=== PATIENT | female | born 1985 | race Caucasian/White ===

== ENCOUNTER 2017-08-16 00:18 | Emergency (ER) | payer MEDICAID ==
[~2017-08-16] VITALS: Ht 162.6 cm; Wt 92.5 kg
[~2017-08-16 00:18] MED LIST: AMOX-291 PO; METF500T4 PO; OMEP-110 PO
[2017-08-16] MEDS ORDERED: SODIUM CHLORIDE 0.9% 1,000 ML IV ONE (00:52)
[2017-08-16] MEDS ORDERED: ACETAMINOPHEN 650 MG/20.3 ML UDC PO ONE (01:00)
[2017-08-16] MEDS ORDERED: SODIUM CHLORIDE FLUSH 10ML SYR IVF ONE (01:00)
[2017-08-16] MEDS ORDERED: SODIUM CHLORIDE 0.9% 1,000ML IVBOLUS ONE (01:00)
[2017-08-16] MEDS ORDERED: ONDANSETRON 2MG/ML, 2ML IVPush ONE (01:00)
[2017-08-16 01:12] LABS: HEMATOCRIT 34.7 % (34.6-47.8); HEMOGLOBIN 11.4 g/dL (11.7-16.4); WHITE BLOOD COUNT 7.3 x10^3/uL (3.4-10)
[2017-08-16 01:21] LABS: ASPARTATE AMINO TRANSFERASE 33 U/L (15-37); BLOOD UREA NITROGEN 9 mg/dL (7-18)
[2017-08-16] MEDS ORDERED: ACETAMINOPHEN 325 MG TABLET PO ONE (01:30)
[2017-08-16] MEDS ORDERED: ACETAMINOPHEN 325 MG TABLET ONE (01:33)
[2017-08-16] MEDS ORDERED: ONDANSETRON 2MG/ML, 2ML ONE (01:33)
[2017-08-16] MEDS ORDERED: INSULIN REGULAR 100 UNITS/ML, 3ML VIAL ONE (01:44)
[2017-08-16] MEDS ORDERED: CEFTRIAXONE PMX 1GM/50ML 50 ML ONE (01:59)
[2017-08-16] MEDS ORDERED: INSULIN REGULAR 100 UNITS/ML, 3ML VIAL SQ-INSULIN ONE (02:00)
[2017-08-16] MEDS ORDERED: CEFTRIAXONE PMX 1GM/50ML 50 ML IVPB ONE (02:00)
[2017-08-16 03:52] VITALS: BP 131/66
== END 2017-08-16 03:56 | disposition home or self-care (01) ==
LOC: ED 03:25
DX: N10 Acute pyelonephritis (principal); E11.65 Type 2 diabetes mellitus with hyperglycemia; Z79.4 Long term (current) use of insulin
CPT/HCPCS: 36415; 80053; 81001; 82010; 82803; 82962; 83605; 83690; 84703; 85025; 87040; 87077; 87086; 87186; 96365; 96366; 96372; 96375; 99285; J0696; J2405; J7030

== ENCOUNTER 2021-07-06 09:37 | Emergency (ER) | payer MEDICAID ==
[~2021-07-06] VITALS: Ht 160 cm; Wt 87.0 kg
[~2021-07-06 09:37] MED LIST changes: +METF500T17 PO; -METF500T4 PO
[2021-07-06 09:41] VITALS: BP_SYST 130
[2021-07-06] MEDS ORDERED: FLUORESCEIN OPHTHALMIC 1 MG STRIP ONE (10:14)
[2021-07-06] MEDS ORDERED: PROPARACAINE OPHTH 0.5%, 15ML ONE (10:16)
[2021-07-06] MEDS ORDERED: PROPARACAINE OPHTH 0.5%, 15ML EACHEYE ONE (10:30)
[2021-07-06] MEDS ORDERED: FLUORESCEIN OPHTHALMIC 1 MG STRIP EACHEYE ONE (10:30)
== END 2021-07-06 11:36 | disposition home or self-care (01) ==
LOC: ED 11:32
DX: H00.011 Hordeolum externum right upper eyelid (principal); E11.9 Type 2 diabetes mellitus without complications
CPT/HCPCS: 99283